=== PATIENT | female | born 1945 | race Hispanic/Latino ===

== ENCOUNTER 2021-05-06 11:39 | Outpatient (CLI) | payer MEDICARE ==
--- NOTE | 2021-05-06 13:44 | XRay Report ---
CHEST 2 VIEWS INDICATION: FORMER SMOKER [id number]. COMPARISON: FINDINGS: Support devices: None. Heart: Within normal limits. Lungs/pleura: No acute air space or interstitial disease. 7 mm calcified granuloma in the right midlu ng is noted and unchanged. No new or suspicious pulmonary lesion on x-ray. No pneumothorax. Additional findings: Stable small hiatal hernia. IMPRESSION: Hiatal hernia. Old granulomatous disease. No acute process or suspicious pulmonary lesion. Signer Name: Sravan Agarwal Jr, MD Signed: 05/06/2021 1:40 PM Workstation Name: [id number]
== END 2021-05-06 11:40 | disposition home or self-care (01) ==
LOC: SPVIMAG 11:39
PROVIDERS: ATTEND Internal Medicine
DX: K44.9 Diaphragmatic hernia without obstruction or gangrene (principal); D71 Functional disorders of polymorphonuclear neutrophils; Z87.891 Personal history of nicotine dependence
CPT/HCPCS: 71046